=== PATIENT | female | born 1990 | race Caucasian/White ===

== ENCOUNTER → 2025-05-17 10:57 | Outpatient (REF) | payer OTHER, SELFPAY | LOC: REG 10:57 | PROVIDERS: ATTENDING PHYSICIAN Nurse Practitioner Family | DX: Z23 Encounter for immunization (principal) | CPT/HCPCS: 36415; 86480; 86706 ==

== ENCOUNTER 2025-08-06 11:42 | Emergency (ER) | payer OTHER, SELFPAY ==
[2025-08-06 11:44] VITALS: BP 130/81
[2025-08-06 12:22] LABS: Hematocrit 41.4 % (37.0-47.0); Hemoglobin 13.8 g/dL (12.0-16.0); Mean Corp Hgb Conc. 33.3 g/dL (33.0-37.0); Mean Corpuscular Volume 88.1 fL (81.0-99.0); Nucleated Red Blood Cells % 0 %; Platelet Count 259 10^3/uL (130-400); Red Cell Dist. Width 13.1 % (11.5-14.5)
[2025-08-06 12:40] LABS: COVID-19 Antigen Negative (Negative)
[2025-08-06 12:54] LABS: ALT (SGPT) 23 U/L (0-35); AST (SGOT) 18 U/L (14-36); Albumin 4.5 g/dl (3.5-5.0); Alkaline Phosphatase 75 U/L (38-126); Blood Urea Nitrogen 16 mg/dl (7-17); Calcium 10.0 mg/dl (8.4-10.2); Carbon Dioxide 25 mmol/L (22-30); Chloride 103 mmol/L (98-107); Glucose 86 mg/dl (70-99); Potassium 4.9 mmol/L (3.5-5.1); Sodium 136 mmol/L (135-145); Total Protein 7.9 g/dl (6.3-8.2); eGFR > 60.00
[2025-08-06 12:55] LABS: HCG, Serum Qualitative Screen Positive
[2025-08-06] MEDS: NSS 1000 IV (14:00)
--- NOTE | 2025-08-06 14:35 | ED.GENMED ---
History of Present Illness
General
Chief Complaint: Cold/Flu/URI Symptoms
Time Seen by Provider: 08/06/25 13:03
History of Present Illness
History of Present Illness:
34-year-old female, currently 7 weeks gestational age, presents to the emergency department for chest discomfort, dry cough, shortness of breath, and diffuse bodyaches as well as fatigue that began yesterday and worsened today. Denies leg swelling
or calf cramping. Denies any vaginal bleeding or discharge. No pelvic pain. Denies any objective fever. 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
Review of Systems
Review of Systems
Allergies reviewed?: Yes
All Other Systems: ROS reviewed and negative except as documented in HPI and ROS
Phy Exam
Physical Exam
Physical Exam:
GEN: Well appearing, NAD, WDWN
HEENT: Oral mucosa moist, no scleral icterus
Cardiac: Regular rate and rhythm, no murmur
Lung: No respiratory distress, no tachypnea, lungs clear to auscultation bilaterally
MSK: No gross deformity or injuries
Skin: Good color, no pallor or jaundice, no rashes
Neuro: AO x3, moves all extremities freely
Psych: Calm, cooperative
Course
Orders/Labs/Results
Orders:
Orders
08/06/25 11:48
Electrocardiogram (*1) Urgent
Reason for Study: Chest Pain
08/06/25 11:49
EKG- Treatment ONCE
Test Result ONCE
08/06/25 11:59
COVID-19 Antigen Urgent
Source: Nasal Swab
Complete Blood Count/With Diff Urgent
Comprehensive Metabolic Panel Urgent
HCG, Serum Qualitative Screen Urgent
Influenza A+B Rapid Molecular Urgent
MACY Source: Nasal Swab
Specimen Description:
08/06/25 13:24
0.9% Sodium Chloride 1000 ml [Nss] 1,000 ml IV BOLUS
CR Chest Single View Urgent
Reason For Exam: SOB/cough
Abnormal Lab Results
08/06/25
11:59
Absolute Neuts (auto) 7.2 H 10^3/uL
(1.4-6.5)
08/06/25 11:59
08/06/25 11:59
Vital Signs
Initial and Last Documented VS:
Initial Vital Signs
Temp Pulse Resp BP Pulse Ox
98.4 F 62 18 130/81 100
08/06/25 11:44 08/06/25 11:44 08/06/25 11:44 08/06/25 11:44 08/06/25 11:44
Last Documented Vital Signs
Temp Pulse Resp BP Pulse Ox
98.4 F 65 18 130/81 97
08/06/25 11:44 08/06/25 14:14 08/06/25 11:44 08/06/25 11:44 08/06/25 14:37
MDM/Problems Addressed
MDM/Problems Addressed:
Likely self-limiting viral syndrome, vital signs are reassuring and chest x-ray shows no evidence for acute disease. Viral testing negative. Given the associated viral symptoms and lack of tachycardia or hypoxia I have a low suspicion for PE.
*Pulse Oximetry
SaO2: 97
Oxygen Mode of Delivery: Room air
Patient hypoxic: no
*Critical Care Note
Total Time (30-74mins, 75-104mins- exclusive of procedures): Not Applicable
ED Attending Note
-
Portions of this chart may have been created with voice recognition software.� Occasional wrong word or��sound alike� substitutions may have occurred due to the inherent limitations of voice recognition software.
Discharge Plan
Departure
Patient Disposition: Home (Routine Discharge)
Date of Disposition: 08/06/25
Time of Disposition: 15:18
Patient with high blood pressure during this ER visit?: No
Discharge Problem:
Acute viral syndrome
Instructions: Viral Syndrome (DC)
Prescriptions:
New
ondansetron 4 mg tablet,disintegrating
4 mg PO TIDPRN PRN (Reason: nausea/vomiting) Qty: 20 0RF
Referrals:
UNKNOWN - PT DOES,NOT KNOW [Family Provider]
Interventions
Interventions:
*Risk Screen - Suicide Last Done: 08/06/25 11:47
*General Assessment Last Done: 08/06/25 11:47
*Neglect/Abuse Screening Last Done: 08/06/25 11:47
*ED COVID-19 Vaccine History Last Done: 08/06/25 11:47
*ED Influenza Vaccine History Last Done: 08/06/25 11:47
Discharge Date and Time
Print Language: SAMOAN
[2025-08-06 16:04] VITALS: BP 138/74
== END 2025-08-06 16:56 | disposition home or self-care (01) ==
LOC: EMR 11:42
PROVIDERS: Emergency Medicine; EMERGENCY PHYSICIAN Emergency Medicine
DX: O98.511 Other viral diseases complicating pregnancy, first trimester (principal); B34.9 Viral infection, unspecified; Z3A.01 Less than 8 weeks gestation of pregnancy
CPT/HCPCS: 99284; 96360; 71045; 80053; 84703; 85025; 87502; 87811; 93005

== ENCOUNTER 2025-09-20 13:47 | Emergency (ER) | payer BC, OTHER, SELFPAY ==
[2025-09-20 13:50] VITALS: BP 122/75
[2025-09-20 14:04] VITALS: BP 128/79
[2025-09-20 14:12] LABS: Hematocrit 37.9 % (37.0-47.0); Hemoglobin 13.2 g/dL (12.0-16.0); Mean Corp Hgb Conc. 34.8 g/dL (33.0-37.0); Mean Corpuscular Volume 85.2 fL (81.0-99.0); Nucleated Red Blood Cells % 0 %; Platelet Count 234 10^3/uL (130-400); Red Cell Dist. Width 12.9 % (11.5-14.5)
[2025-09-20 14:28] LABS: ALT (SGPT) 17 U/L (0-35); AST (SGOT) 15 U/L (14-36); Albumin 4.2 g/dl (3.5-5.0); Alkaline Phosphatase 65 U/L (38-126); Blood Urea Nitrogen 9 mg/dl (7-17); Calcium 9.5 mg/dl (8.4-10.2); Carbon Dioxide 26 mmol/L (22-30); Chloride 104 mmol/L (98-107); Glucose 74 mg/dl (70-99); Lipase 79 U/L (23-300); Potassium 4.2 mmol/L (3.5-5.1); Total Protein 7.6 g/dl (6.3-8.2); eGFR > 60.00
--- NOTE | 2025-09-20 14:29 | ED.GENMED ---
History of Present Illness
General
Chief Complaint: Abdominal Symptoms
Source: patient
Exam Limitations: none
Time Seen by Provider: 09/20/25 14:07
Nursing documentation reviewed up to this point in time: agreed with
History of Present Illness
History of Present Illness:
Patient is a 34-year-old female, estimated 13 weeks gestation who presents to the emergency department for evaluation of lightheadedness and right pelvic pain. 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
room when she became nauseous, lightheaded, and felt that she was going to pass out. She stepped out, took a seat on the ground and began feeling better however had returned of lightheadedness upon standing. She then describes noticing a
relatively sharp and sudden pain in her right pelvic region which has since dissipated somewhat. By my assessment, she states she still feels lightheaded and 'flushed'.
She denies any fever or chills. She has not had any vomiting or anorexia. She has not had any episodes of syncope. She denies any vaginal bleeding/spotting or loss of fluids.
Patient states that she has had blood work from your however 'forgot' to go to her scheduled ultrasound. Therefore, she has not had ultrasound documentation of an intrauterine thus far. However�pankaj is scheduled for an
ultrasound on Saturday.
Review of Systems
Review of Systems
Allergies reviewed?: Yes
All Other Systems: ROS reviewed and negative except as documented in HPI and ROS
Phy Exam
Physical Exam
Physical Exam:
Vitals: Patient's vital signs are stable. Afebrile
General: Patient is anxious appearing
Skin: Warm and dry, no rashes or lesions
Head: Normocephalic, atraumatic
Eyes: Sclera nonicteric.
Throat: Protecting airway
Neck: Normal ROM, no cervical spine tenderness, no meningismus
Cardiac: Regular rate and rhythm, no murmurs. 2+ palpable radial pulses bilaterally
Pulm: Normal respiratory effort. Lungs clear bilaterally
Abdomen: Abdomen soft and nontender.
Extremities: No evidence of cyanosis or edema. Palpable distal pulses bilaterally
Neuro: AAOx3. Grossly intact
Psychiatric: Normal affect.
Course
Orders/Labs/Results
Orders:
Orders
09/20/25 13:52
Electrocardiogram (*1) Urgent
Reason for Study: Vertigo / Dizzy
09/20/25 13:53
EKG- Treatment ONCE
09/20/25 14:05
Type And Crossmatch [Type+Screen] Urgent
Beta HCG Quantitative Urgent
Is this a screen?: No
Complete Blood Count/With Diff Urgent
Comprehensive Metabolic Panel Urgent
Lipase Urgent
09/20/25 14:24
Lactated Ringers [Lr] 1,000 ml IV BOLUS
2nd/3rd Trimester US [US 2nd/3rd Trimester] Urgent
Comment:
Reason For Exam: right pelvic pain
US Abdomen - Appendix Only Urgent
Comment:
Reason For Exam: RLQ pain,
09/20/25 14:40
COVID-19 Antigen Urgent
Source: Nasal Swab
Influenza A+B Rapid Molecular Urgent
MACY Source: Nasal Swab
Specimen Description:
09/20/25 14:51
Urinalysis Reflex To Culture Urgent
Date Specimen was Collected: 09/20/25
Time Specimen was Collected: 14:47
Urine Microscopic Reflex Cult Urgent
Abnormal Lab Results
09/20/25 09/20/25
14:05 14:51
WBC 11.6 H 10^3/uL
(4.8-10.8)
Abs Immat Gran (auto) 0.1 H 10^3/uL
(0-0.05)
Absolute Neuts (auto) 8.2 H 10^3/uL
(1.4-6.5)
Absolute Monos (auto) 0.7 H 10^3/uL
(0.1-0.6)
Sodium 133 L mmol/L
(135-145)
Creatinine 0.5 L mg/dL
(0.6-1.0)
Urine Ketones 1+ A
(Negative)
Urine Albumin (Reflex) 1+ A
(Neg - Trace)
09/20/25 14:05
09/20/25 14:05
Vital Signs
Initial and Last Documented VS:
Initial Vital Signs
Temp Pulse Resp BP Pulse Ox
98.1 F 75 13 122/75 97
09/20/25 13:50 09/20/25 13:50 09/20/25 13:50 09/20/25 13:50 09/20/25 13:50
Last Documented Vital Signs
Temp Pulse Resp BP Pulse Ox
98.1 F 79 19 111/65 97
09/20/25 13:50 09/20/25 17:00 09/20/25 17:00 09/20/25 15:17 09/20/25 17:00
MDM/Problems Addressed
Differential Diagnosis Includes:
Not limited to: Dehydration/electrolyte abnormality, viral illness, orthostatic hypotension, ectopic , threatened , doubt appendicitis, etc.
MDM/Problems Addressed:
34-year-old at an estimated 13 weeks gestation presenting with lightheadedness, nausea, and right pelvic pain. No vaginal bleeding, fevers, or vomiting. No episodes of syncope. No documented IUP. Patient hemodynamically stable on arrival. On
exam, she appears anxious however nontoxic. Abdomen with mild tenderness in right pelvic region, although no rebound or guarding. No focal tenderness at McBurney�s point. Cardio/pulmonary assessment unremarkable.
Work up in ED unemarkable. Labs reveal mild leukocytosis however would be considered normal in second trimester of . She has no other symptoms suggestive of underlying infectious etiology. Ultrasound does show single, live IUP estimating
approximately 13 weeks gestation with heart rate of 155 BPM.
Appendix was not clearly visualized on ultrasound.
Patient�s pain has improved. She does report still feeling lightheaded, however has remained stable here and is able to ambulate. Her orthostatic vital signs are normal.
Etiology of symptoms uncertain. Possible due to increased demand during vs dehydration vs underlying viral illness.
Low suspicion for acute intra-abdominal infectious process as patient is afebrile with benign abdominal exam. Feel risk of CT and radiation exposure in early outweigh potential benefit at this point.
Patient received 1 L of lactated ringers in ED. She has been able to ambulate and has her normal vital signs. She is tolerating oral intake.
Feel stable for discharge home with very close monitoring of symptoms and return precautions. She will follow up with OBGYN as scheduled. Case was discussed with attending physician.
Chronic conditions affecting care:
N/A
Acute Exacerbation and/or Progression of Chronic Illness:
N/A
*Radiology
Radiology exam reviewed: radiology read reviewed
*Pulse Oximetry
SaO2: 100
Oxygen Mode of Delivery: Room air
Patient hypoxic: no
*EKG
Interpreted by ED Provider?: Yes
Interpretation: normal
Comparison EKG: no changes
Heart Rate: 68
Rate: normal
Rhythm: sinus
[place]: normal axis
Interval: short AL
QRS Pattern: normal QRS
Ischemia: no ischemia
*School Health Assistant Interpretation
Rate: normal
Interpretation: normal
Heart Rate: 76
Rhythm: sinus
*Critical Care Note
Total Time (30-74mins, 75-104mins- exclusive of procedures): Not Applicable
Patient Management
Discussion with other providers: Intelligence Operations Specialist (Case discussed with attending ED physician)
ED Attending Note
-
Portions of this chart may have been created with voice recognition software.� Occasional wrong word or��sound alike� substitutions may have occurred due to the inherent limitations of voice recognition software.
Discharge Plan
Departure
Patient Disposition: Home (Routine Discharge)
Date of Disposition: 09/20/25
Time of Disposition: 17:14
Patient with high blood pressure during this ER visit?: No
Condition: Good
Discharge Problem:
Lightheadedness, Second trimester
Instructions: Near Fainting (DC)
Prescriptions:
No Action
ondansetron 4 mg tablet,disintegrating
4 mg PO TIDPRN PRN (Reason: nausea/vomiting) Qty: 20 0RF
Referrals:
Emily Munoz, DO [Family Provider, Internal Medicine]
Stand Alone Forms: Return to Work
Activity Restrictions/Additional Instructions:
RETURN TO THE EMERGENCY DEPARTMENT WITH ANY FEVER, PERSISTENT/WORSENING ABDOMINAL OR PELVIC PAIN, VAGINAL BLEEDING, SIGNIFICANT LIGHTHEADEDNESS OR EPISODES OF FAINTING, WORSENING CURRENT SYMPTOMS, OR ANY OTHER CONCERNS
- As discussed your lab work showed no acute abnormalities today. Your ultrasound showed a intrauterine estimated approximately 13 weeks gestation with a heart rate of 155 bpm.
- You were given a liter of IV fluids. Please stay well-hydrated at home. Move slowly from sitting to standing.
- Follow-up with your [facility] [employer] tomorrow as scheduled
Monitor your symptoms closely and return to the emergency department with any acute worsening/new symptoms or any other concerns
Interventions
Interventions:
*Risk Screen - Suicide Last Done: 09/20/25 13:54
*General Assessment Last Done: 09/20/25 13:54
*Neglect/Abuse Screening Last Done: 09/20/25 13:54
*ED COVID-19 Vaccine History Last Done: 09/20/25 13:54
*ED Influenza Vaccine History Last Done: 09/20/25 13:54
[facility] Fall Risk Assessment Tool Last Done: 09/20/25 14:12
*Nursing Disposition Last Done: 09/20/25 18:11
[facility]-Bgrhtr-Tuousmicon Assessment Last Done: 09/20/25 14:12
Discharge Date and Time
Discharge Date/Time: 09/20/25 18:11
Print Language: [place]
[2025-09-20 14:33] LABS: Sodium 133 mmol/L (135-145)
[2025-09-20] MEDS: LR 1000 IV (14:34)
[2025-09-20 14:57] LABS: Urine Character Clear (Clear)
[2025-09-20 15:04] LABS: Urine Red Blood Cell 0-2 /HPF (0-2); Urine White Cell 0-2 /HPF (0-5)
[2025-09-20 15:07] LABS: COVID-19 Antigen Negative (Negative)
[2025-09-20 15:17] VITALS: BP 111/65
[2025-09-20 17:24] VITALS: BP 111/65; BP 116/72; BP 125/70; PULSE 80; PULSE 89; PULSE 90
== END 2025-09-20 18:11 | disposition home or self-care (01) ==
LOC: EMR 13:47
PROVIDERS: Physician Assistant; EMERGENCY PHYSICIAN Emergency Medicine; FAMILY PHYSICIAN Internal Medicine
DX: O99.891 Other specified diseases and conditions complicating pregnancy (principal); R42 Dizziness and giddiness; R10.21 Pelvic and perineal pain right side; Z11.52 Encounter for screening for COVID-19; Z3A.13 13 weeks gestation of pregnancy
CPT/HCPCS: 96360; 99284; 76705; 76805; 80053; 81003; 81015; 83690; 84702; 85025; 86850; 86900; 86901; 87502; 87811; 93005